=== PATIENT | male | born 1995 | race Caucasian/White ===

== ENCOUNTER 2019-02-16 06:15 | Emergency (ER) | payer OTHER ==
[~2019-02-16] VITALS: Ht 170.2 cm; Wt 78.0 kg
[2019-02-16 06:24] VITALS: BP 130/85
--- NOTE | 2019-02-16 06:27 | NUR ---
TO ED 02 WITH STEADY GAIT.
--- NOTE | 2019-02-16 06:30 | NUR ---
PT TO ED WITH C/O COUGH OVER 2 WEEKS. NO OBVIOUS DISTRESS NOTED. LUNG SOUNDS CLEAR BIALTERALLY. PT PLACED INTO BED, PENDING MD GRAHAM.
--- NOTE | 2019-02-16 07:15 | NUR ---
X-RAY AT BEDSIDE.
--- NOTE | 2019-02-16 07:47 | NUR ---
Patient being evaluated by physician at bedside.
--- NOTE | 2019-02-16 07:54 | NUR ---
Patient discharged with v/s stable. Written and verbal after care instructions given and explained. Rx of ZITHROMAX given. Patient educated on indication of medication including possible reaction and side effects. All questions addressed prior to discharge. ID band removed. Patient advised to follow up with PMD.
[2019-02-16 07:55] VITALS: BP 130/85
== END 2019-02-16 07:54 | disposition home or self-care (01) ==
LOC: MED 06:15
DX: J40 Bronchitis, not specified as acute or chronic (principal)
CPT/HCPCS: 71045; 99283; Q0092

== ENCOUNTER 2022-03-15 10:34 | Emergency (ER) | payer OTHER ==
[~2022-03-15] VITALS: Ht 170.2 cm; Wt 83.9 kg
[2022-03-15 10:55] VITALS: BP 156/98
[2022-03-15] MEDS ORDERED: IBUPROFEN 600 MG TAB PO ONE (12:00)
--- NOTE | 2022-03-15 12:55 | NUR ---
PT RETURNED FROM U/S VIA WC. TAKEN TO BED 11
[2022-03-15] MEDS ORDERED: IBUP-2213 PO ×2 (13:52→15:18)
[2022-03-15 14:15] VITALS: BP 118/60
--- NOTE | 2022-03-15 14:15 | NUR ---
Patient discharged with v/s stable. Written and verbal after care instructions given and explained. Patient alert, oriented and verbalized understanding of instructions. Ambulatory with steady gait. All questions addressed prior to discharge. ID band removed. Patient advised to follow up with PMD. Rx of IBU given. Patient educated on indication of medication including possible reaction and side effects. Opportunity to ask questions provided and answered.
== END 2022-03-15 14:15 | disposition home or self-care (01) ==
LOC: MED 10:34
DX: N50.811 Right testicular pain (principal); N43.40 Spermatocele of epididymis, unspecified; R03.0 Elevated blood-pressure reading, without diagnosis of hypertension; Z79.899 Other long term (current) drug therapy
CPT/HCPCS: 76870; 81002; 99284; Q0092